=== PATIENT | female | born 1940 | race Caucasian/White ===

== ENCOUNTER 2021-10-22 20:41 | Inpatient (IN) | payer MEDICARE, MEDICAID ==
[2021-10-22 21:25] VITALS: BMI 40.0
[2021-10-22] MEDS ORDERED: Sodium Chloride 0.9% 1,000 ML IV SCH (21:45)
[2021-10-22] MEDS ORDERED: Communication Order-Pharmacy FS PRN (22:33)
[2021-10-22] MEDS ORDERED: Ondansetron ODT 4 MG TAB PO PRN (22:39)
[2021-10-22] MEDS ORDERED: Ondansetron PF 4 MG/2 ML Vial IVP PRN (22:39)
[2021-10-22] MEDS ORDERED: Dextrose 5% in Water 1,000 ML IV PRN (22:44)
[2021-10-22] MEDS ORDERED: Dextrose 50% Abboject 50 ML SYRINGE SLOW IVP PRN (22:44)
[2021-10-22] MEDS ORDERED: HumaLOG 300 UNITS/3 ML VIAL SC PRN (22:44)
[2021-10-22] MEDS: Lactated Ringer's 1,000 ML IV SCH (23:05)
[2021-10-22] MEDS ORDERED: Clotrimazole 2% 3 Day Vag Cr 22.2 GM TUBE FS SCH (23:30)
[2021-10-23] MEDS ORDERED: Vancomycin HCl 1 GM in Sodium Chloride 0.9% 250 ML 250 ML IVPB SCH (01:00)
[2021-10-23] MEDS: Acetaminophen 325 MG TAB PO PRN ×3 (03:19→17:02)
[2021-10-23 05:07] LABS: Hemoglobin 10.4 g/dL (12.0-15.5); Mean Corpuscular Hemoglobin 27.5 pg (27.0-33.0); Mean Corpuscular Volume 88.6 fl (81.6-98.3); Mean Platelet Volume 10.2 fl (7.4-10.4); Platelet Count 199 10x3/uL (150-450); RBC Distribution Width 12.5 % (11.5-14.5); Red Blood Cell (RBC) Count 3.78 10x6/uL (3.90-5.03); White Blood Cell (WBC) Count 15.1 10x3/uL (3.5-10.5)
[2021-10-23 05:14] LABS: Anion Gap 11 mmol/L (10-20); BUN (Urea Nitrogen) 17 mg/dL (9.8-20.1); Calc. Creatinine Clearance 75 mL/min (70-130); Calcium 7.4 mg/dL (7.8-10.44); Carbon Dioxide 22 mmol/L (23-31); Chloride 107 mmol/L (98-107); Estimated GFR 66; Glucose 136 mg/dL (83-110); Magnesium 1.7 mg/dL (1.6-2.6); Potassium 4.4 mmol/L (3.5-5.1); Sodium 136 mmol/L (136-145)
[2021-10-23 05:39] LABS: MDiff Complete? YES
[2021-10-23 05:46] LABS: Band 6 % (5-11); Lymphocytes 6 % (21-51); Monocytes 5 % (0-10); Neutrophil 83 % (42-75)
[2021-10-23] MEDS ORDERED: Levothyroxine Sodium 100 MCG TAB PO SCH (06:00)
[2021-10-23] MEDS: Lactated Ringer's 1,000 ML IV SCH ×2 (06:02→14:42)
[2021-10-23] MEDS: Lantus 1000 UNITS/10 ML VIAL SC SCH (09:54)
[2021-10-23] MEDS: Enoxaparin Sodium 40 MG/0.4 ML SYRINGE SC SCH (09:55)
[2021-10-23 10:37] LABS: ALT (SGPT) 19 U/L (8-55); AST (SGOT) 16 U/L (5-34); Albumin 2.7 g/dL (3.4-4.8); Alkaline Phosphatase 71 U/L (40-110); Bilirubin, Direct 0.6 mg/dL (0.1-0.3); Bilirubin, Total 0.9 mg/dL (0.2-1.2); Protein, Total 5.4 g/dL (5.8-8.1)
[2021-10-23] MEDS: Clotrimazole 2% 3 Day Vag Cr 22.2 GM TUBE FS SCH ×2 (11:08→21:53)
[2021-10-23] MEDS: Nystatin Powder 15 GM BOT TOP PRN (21:53)
[2021-10-23] MEDS: Senokot S 8.6-50 MG TAB PO SCH (21:53)
[2021-10-23] MEDS: Cefepime 2 GM in Sodium Chloride 0.9% 100 ML IVPB SCH (22:00)
[2021-10-24] MEDS ORDERED: Vancomycin 1.5 GRAM/300 ML BAG 1.5 GM in Premix Bag 1 BAG IVPB SCH (01:00)
[2021-10-24 05:03] LABS: #Basophils 0.1 10x3/uL (0.0-0.2); #Monocytes 0.5 10x3/uL (0.0-1.1); #Neutrophils 11.7 10x3/uL (1.5-8.4); %Basophils 0.4 % (0.0-2.0); %Eosinophils 0.3 % (0.0-6.0); %Lymphocytes 9.3 % (18.0-47.0); %Monocytes 3.4 % (0.0-10.0); %Neutrophils 85.5 % (40.0-75.0); Mean Corpuscular HGB CONC 31.2 g/dL (32.0-36.0); Mean Corpuscular Hemoglobin 27.6 pg (27.0-33.0); Mean Corpuscular Volume 88.7 fl (81.6-98.3); Mean Platelet Volume 10.7 fl (7.4-10.4); Platelet Count 202 10x3/uL (150-450); RBC Distribution Width 12.5 % (11.5-14.5); Red Blood Cell (RBC) Count 3.62 10x6/uL (3.90-5.03); White Blood Cell (WBC) Count 13.6 10x3/uL (3.5-10.5)
[2021-10-24] MEDS: Lactated Ringer's 1,000 ML IV SCH (05:24)
[2021-10-24] MEDS: Levothyroxine Sodium 100 MCG TAB PO SCH (05:24)
[2021-10-24 05:25] LABS: ALT (SGPT) 17 U/L (8-55); AST (SGOT) 16 U/L (5-34); Albumin 2.7 g/dL (3.4-4.8); Alkaline Phosphatase 79 U/L (40-110); Anion Gap 13 mmol/L (10-20); BUN (Urea Nitrogen) 17 mg/dL (9.8-20.1); Bilirubin, Direct 0.5 mg/dL (0.1-0.3); Bilirubin, Total 0.7 mg/dL (0.2-1.2); CRP (Inflammatory) 22.31 mg/dL (= or < 0.5); Calc. Creatinine Clearance 82 mL/min (70-130); Calcium 7.8 mg/dL (7.8-10.44); Carbon Dioxide 20 mmol/L (23-31); Cardiac Risk 5.1 (Less than 4.5); Chloride 107 mmol/L (98-107); Cholesterol 101 mg/dl (< 200 Desired); Estimated GFR 74; Globulin 2.8 g/dL (2.4-3.5); Glucose 94 mg/dL (83-110); HDL Cholesterol 20 mg/dL (>60 Neg Risk); LDL Cholesterol, Calculated 63 mg/dL; Magnesium 1.8 mg/dL (1.6-2.6); Potassium 4.2 mmol/L (3.5-5.1); Protein, Total 5.5 g/dL (5.8-8.1); Sodium 136 mmol/L (136-145); Triglycerides 92 mg/dL (Less than 150)
[2021-10-24] MEDS: Senokot S 8.6-50 MG TAB PO SCH ×2 (09:37→22:14)
[2021-10-24] MEDS: Clotrimazole 2% 3 Day Vag Cr 22.2 GM TUBE FS SCH (09:37)
[2021-10-24] MEDS: Polyethylene Glycol 3350 17 GM Packet PO SCH (09:37)
[2021-10-24] MEDS: Enoxaparin Sodium 40 MG/0.4 ML SYRINGE SC SCH (09:37)
[2021-10-24] MEDS: Lantus 1000 UNITS/10 ML VIAL SC SCH (09:37)
[2021-10-24] MEDS: Cefepime 2 GM in Sodium Chloride 0.9% 100 ML IVPB SCH ×2 (10:58→22:15)
[2021-10-24] MEDS: Acetaminophen 325 MG TAB PO PRN (22:15)
[2021-10-25] MEDS: Nystatin Powder 15 GM BOT TOP PRN (00:02)
[2021-10-25] MEDS: Clotrimazole 2% 3 Day Vag Cr 22.2 GM TUBE FS SCH ×3 (00:03→20:54)
[2021-10-25 00:34] LABS: Vancomycin, Trough 12.8 ug/mL
[2021-10-25] MEDS ORDERED: VANCOMYCIN 1.75 GM/350 ML BAG 1.75 GM in Premix Bag 1 BAG IVPB SCH (01:00)
[2021-10-25] MEDS: VANCOMYCIN 1.75 GM, Admixture Fee 1 EACH in Sodium Chloride 0.9% 500 ML IVPB SCH (01:13)
[2021-10-25 05:10] LABS: Actual Bicarbonate (HCO3v) 24 mEq/L (22-28); Base Excess -0.5 mEq/L (-2.0 to +3.0); Calcium, Ionized (venous) 1.06 mmol/L (1.16-1.32); Chloride (VBG) 109 mmol/L (98-106); Critical Notified By: CP.PH; Potassium (VBG) 3.94 mmol/L (3.70-5.30); Puncture Site Other Site; Sodium 136.7 mmol/L (133-146); pH (venous) 7.42 (7.32-7.43)
[2021-10-25 05:26] LABS: #Basophils 0.1 10x3/uL (0.0-0.2); #Eosinphils 0.2 10x3/uL (0.0-0.5); #Monocytes 0.6 10x3/uL (0.0-1.1); %Basophils 0.5 % (0.0-2.0); %Eosinophils 2.2 % (0.0-6.0); %Lymphocytes 13.4 % (18.0-47.0); %Monocytes 5.5 % (0.0-10.0); %Neutrophils 77.9 % (40.0-75.0); Hemoglobin 9.9 g/dL (12.0-15.5); Mean Corpuscular HGB CONC 31.3 g/dL (32.0-36.0); Mean Corpuscular Hemoglobin 27.3 pg (27.0-33.0); Mean Corpuscular Volume 87.3 fl (81.6-98.3); Mean Platelet Volume 10.3 fl (7.4-10.4); Platelet Count 189 10x3/uL (150-450); RBC Distribution Width 12.6 % (11.5-14.5); Red Blood Cell (RBC) Count 3.62 10x6/uL (3.90-5.03); White Blood Cell (WBC) Count 10.3 10x3/uL (3.5-10.5)
[2021-10-25] MEDS: Levothyroxine Sodium 100 MCG TAB PO SCH (05:36)
[2021-10-25 05:53] LABS: ALT (SGPT) 12 U/L (8-55); AST (SGOT) 12 U/L (5-34); Albumin 2.5 g/dL (3.4-4.8); Alkaline Phosphatase 87 U/L (40-110); Anion Gap 11 mmol/L (10-20); BUN (Urea Nitrogen) 13 mg/dL (9.8-20.1); Bilirubin, Total 0.5 mg/dL (0.2-1.2); Calc. Creatinine Clearance 91 mL/min (70-130); Calcium 7.8 mg/dL (7.8-10.44); Carbon Dioxide 24 mmol/L (23-31); Chloride 108 mmol/L (98-107); Estimated GFR 83; Globulin 2.9 g/dL (2.4-3.5); Glucose 72 mg/dL (83-110); Protein, Total 5.4 g/dL (5.8-8.1); Sodium 139 mmol/L (136-145)
[2021-10-25] MEDS ORDERED: Fluconazole 100 MG TAB PO SCH (09:30)
[2021-10-25] MEDS: Acetaminophen 325 MG TAB PO PRN ×2 (09:48→20:52)
[2021-10-25] MEDS: Senokot S 8.6-50 MG TAB PO SCH ×2 (09:48→20:53)
[2021-10-25] MEDS: Amlodipine 5 MG TAB PO SCH (09:48)
[2021-10-25] MEDS: Lisinopril 10 MG TAB PO SCH (09:48)
[2021-10-25] MEDS: Enoxaparin Sodium 40 MG/0.4 ML SYRINGE SC SCH (09:49)
[2021-10-25] MEDS: Lantus 1000 UNITS/10 ML VIAL SC SCH (09:49)
[2021-10-25] MEDS: Polyethylene Glycol 3350 17 GM Packet PO SCH (09:50)
[2021-10-25] MEDS: Cefepime 2 GM in Sodium Chloride 0.9% 100 ML IVPB SCH ×2 (10:05→22:23)
[2021-10-26] MEDS: VANCOMYCIN 1.75 GM, Admixture Fee 1 EACH in Sodium Chloride 0.9% 500 ML IVPB SCH (01:28)
[2021-10-26 05:30] LABS: #Basophils 0.1 10x3/uL (0.0-0.2); #Eosinphils 0.3 10x3/uL (0.0-0.5); #Monocytes 0.4 10x3/uL (0.0-1.1); #Neutrophils 6.1 10x3/uL (1.5-8.4); %Basophils 0.6 % (0.0-2.0); %Eosinophils 3.9 % (0.0-6.0); %Lymphocytes 15.5 % (18.0-47.0); %Monocytes 5.2 % (0.0-10.0); %Neutrophils 74.3 % (40.0-75.0); Hemoglobin 10.2 g/dL (12.0-15.5); Mean Corpuscular HGB CONC 30.9 g/dL (32.0-36.0); Mean Corpuscular Volume 87.3 fl (81.6-98.3); Mean Platelet Volume 10.5 fl (7.4-10.4); Platelet Count 208 10x3/uL (150-450); RBC Distribution Width 12.4 % (11.5-14.5); Red Blood Cell (RBC) Count 3.78 10x6/uL (3.90-5.03); White Blood Cell (WBC) Count 8.3 10x3/uL (3.5-10.5)
[2021-10-26] MEDS: Levothyroxine Sodium 100 MCG TAB PO SCH (05:38)
[2021-10-26 05:52] LABS: ALT (SGPT) 13 U/L (8-55); AST (SGOT) 14 U/L (5-34); Albumin 2.5 g/dL (3.4-4.8); Alkaline Phosphatase 99 U/L (40-110); Anion Gap 12 mmol/L (10-20); BUN (Urea Nitrogen) 10 mg/dL (9.8-20.1); Bilirubin, Total 0.5 mg/dL (0.2-1.2); Calc. Creatinine Clearance 100 mL/min (70-130); Calcium 7.9 mg/dL (7.8-10.44); Carbon Dioxide 24 mmol/L (23-31); Chloride 108 mmol/L (98-107); Estimated GFR 88; Globulin 3.1 g/dL (2.4-3.5); Glucose 115 mg/dL (83-110); Magnesium 1.9 mg/dL (1.6-2.6); Potassium 3.9 mmol/L (3.5-5.1); Protein, Total 5.6 g/dL (5.8-8.1); Sodium 140 mmol/L (136-145)
[2021-10-26] MEDS ORDERED: Iopamidol 300 61% 100 ML VIAL FS ONE (08:00)
[2021-10-26] MEDS: Clotrimazole 2% 3 Day Vag Cr 22.2 GM TUBE FS SCH ×2 (09:36→20:30)
[2021-10-26] MEDS: Enoxaparin Sodium 40 MG/0.4 ML SYRINGE SC SCH (09:37)
[2021-10-26] MEDS: Amlodipine 5 MG TAB PO SCH (09:37)
[2021-10-26] MEDS: Acetaminophen 325 MG TAB PO PRN (09:37)
[2021-10-26] MEDS: Lisinopril 10 MG TAB PO SCH (09:38)
[2021-10-26] MEDS: Senokot S 8.6-50 MG TAB PO SCH ×2 (09:39→20:30)
[2021-10-26] MEDS: Lantus 1000 UNITS/10 ML VIAL SC SCH (09:39)
[2021-10-26] MEDS: Polyethylene Glycol 3350 17 GM Packet PO SCH (09:39)
[2021-10-26] MEDS: Cefepime 2 GM in Sodium Chloride 0.9% 100 ML IVPB SCH ×2 (10:34→23:17)
[2021-10-26] MEDS: Gabapentin 100 MG CAP PO SCH ×2 (13:24→20:29)
[2021-10-27] MEDS: VANCOMYCIN 1.75 GM, Admixture Fee 1 EACH in Sodium Chloride 0.9% 500 ML IVPB SCH (01:23)
[2021-10-27 04:24] LABS: #Basophils 0.1 10x3/uL (0.0-0.2); #Eosinphils 0.3 10x3/uL (0.0-0.5); #Monocytes 0.4 10x3/uL (0.0-1.1); #Neutrophils 3.9 10x3/uL (1.5-8.4); %Eosinophils 4.7 % (0.0-6.0); %Lymphocytes 24.1 % (18.0-47.0); %Monocytes 6.8 % (0.0-10.0); %Neutrophils 62.6 % (40.0-75.0); Hemoglobin 10.4 g/dL (12.0-15.5); Mean Corpuscular HGB CONC 31.2 g/dL (32.0-36.0); Mean Corpuscular Hemoglobin 27.2 pg (27.0-33.0); Mean Corpuscular Volume 87.2 fl (81.6-98.3); Mean Platelet Volume 9.9 fl (7.4-10.4); Platelet Count 219 10x3/uL (150-450); RBC Distribution Width 12.5 % (11.5-14.5); Red Blood Cell (RBC) Count 3.82 10x6/uL (3.90-5.03); White Blood Cell (WBC) Count 6.2 10x3/uL (3.5-10.5)
[2021-10-27 05:09] LABS: ALT (SGPT) 13 U/L (8-55); AST (SGOT) 14 U/L (5-34); Albumin 2.7 g/dL (3.4-4.8); Alkaline Phosphatase 95 U/L (40-110); Anion Gap 14 mmol/L (10-20); BUN (Urea Nitrogen) 9 mg/dL (9.8-20.1); Bilirubin, Total 0.5 mg/dL (0.2-1.2); Calc. Creatinine Clearance 94 mL/min (70-130); Carbon Dioxide 25 mmol/L (23-31); Chloride 105 mmol/L (98-107); Estimated GFR 86; Globulin 3.3 g/dL (2.4-3.5); Glucose 110 mg/dL (83-110); Magnesium 1.9 mg/dL (1.6-2.6); Sodium 140 mmol/L (136-145)
[2021-10-27] MEDS: Levothyroxine Sodium 100 MCG TAB PO SCH (05:24)
[2021-10-27] MEDS ORDERED: Fluconazole 100 MG TAB PO SCH (09:00)
[2021-10-27] MEDS ORDERED: Doxycycline 100 MG CAP PO SCH (09:00)
[2021-10-27] MEDS: Senokot S 8.6-50 MG TAB PO SCH (10:58)
[2021-10-27] MEDS: Gabapentin 100 MG CAP PO SCH ×2 (10:58→14:02)
[2021-10-27] MEDS: Enoxaparin Sodium 40 MG/0.4 ML SYRINGE SC SCH (10:58)
[2021-10-27] MEDS: Polyethylene Glycol 3350 17 GM Packet PO SCH (10:58)
[2021-10-27] MEDS: Clotrimazole 2% 3 Day Vag Cr 22.2 GM TUBE FS SCH (10:59)
[2021-10-27] MEDS: Lisinopril 10 MG TAB PO SCH (10:59)
[2021-10-27] MEDS: Amlodipine 5 MG TAB PO SCH (10:59)
[2021-10-27] MEDS: Lantus 1000 UNITS/10 ML VIAL SC SCH (11:07)
[2021-10-27] MEDS ORDERED: Cephalexin 500 MG CAP PO SCH (12:00)
[2021-10-27] MEDS ORDERED: Milk Of Magnesia 30 ML UDCUP PO SCH (13:00)
[2021-10-27 16:15] VITALS: BP 144/72; TEMP 98.3
[2021-10-27] MEDS ORDERED: Polyethylene Glycol 3350 17 GM Packet PO SCH (21:00)
== END 2021-10-27 17:00 | DRG 871 ==
LOC: CSHTELE 20:41
PROVIDERS: ADMIT Family Medicine; ATTEND Family Medicine
DX: A41.9 Sepsis, unspecified organism (principal); G93.41 Metabolic encephalopathy; Z68.41 Body mass index [BMI] 40.0-44.9, adult; N39.0 Urinary tract infection, site not specified; I50.22 Chronic systolic (congestive) heart failure; I13.0 Hypertensive heart and chronic kidney disease with heart failure and stage 1 through stage 4 chronic kidney disease, or unspecified chronic kidney disease; E03.9 Hypothyroidism, unspecified; Z20.822 Contact with and (suspected) exposure to COVID-19; L89.152 Pressure ulcer of sacral region, stage 2; N18.31 Chronic kidney disease, stage 3a; L30.4 Erythema intertrigo; E66.01 Morbid (severe) obesity due to excess calories; E11.22 Type 2 diabetes mellitus with diabetic chronic kidney disease; M19.041 Primary osteoarthritis, right hand; M19.071 Primary osteoarthritis, right ankle and foot; B35.6 Tinea cruris; R10.2 Pelvic and perineal pain; Z88.2 Allergy status to sulfonamides; Z88.8 Allergy status to other drugs, medicaments and biological substances; Z88.5 Allergy status to narcotic agent; Z79.4 Long term (current) use of insulin; Z79.899 Other long term (current) drug therapy
CPT/HCPCS: 36415; 36416; 51701; 70450; 71045; 71260; 74177; 76770; 80048; 80053; 80061; 80076; 80202; 81003; 81015; 82805; 83036; 83605; 83735; 83880; 84443; 84484; 85025; 85610; 85652; 85730; 86140; 87040; 87086; 93005; 93010; 94760; 96365; 96375; 97139; J0692; J0696; J1650; J1815; J3370; J3490; J7030; J7050; J7120; Q9967